=== PATIENT | female | born 1960 | race Hispanic/Latino ===

== ENCOUNTER → 2020-06-09 | Outpatient (CLI) | payer MEDICARE | LOC: RAD 13:11 | PROVIDERS: ATTEND Internal Medicine | DX: M54.17 Radiculopathy, lumbosacral region (principal) | CPT/HCPCS: 72110 ==

== ENCOUNTER → 2020-09-17 | Outpatient (CLI) | payer MEDICARE | LOC: RAD 12:10 | PROVIDERS: ATTEND Internal Medicine | DX: K57.92 Diverticulitis of intestine, part unspecified, without perforation or abscess without bleeding (principal) | CPT/HCPCS: 74018 ==

== ENCOUNTER → 2021-03-22 | Outpatient (CLI) | payer MEDICARE | LOC: DX 10:30 | PROVIDERS: ATTEND Internal Medicine | DX: M85.80 Other specified disorders of bone density and structure, unspecified site (principal) | CPT/HCPCS: 77080 ==

== ENCOUNTER → 2021-07-07 | Outpatient (CLI) | payer MEDICARE | LOC: MRI 14:25 | PROVIDERS: ATTEND Internal Medicine | DX: M47.16 Other spondylosis with myelopathy, lumbar region (principal) | CPT/HCPCS: 72148 ==

== ENCOUNTER → 2022-05-17 | Outpatient (CLI) | payer MEDICARE | LOC: RAD 13:00 | PROVIDERS: ATTEND Internal Medicine | DX: M43.02 Spondylolysis, cervical region (principal) | CPT/HCPCS: 72050 ==

== ENCOUNTER → 2022-06-17 | Outpatient (CLI) | payer MEDICARE | LOC: US 07:27 | PROVIDERS: ATTEND Internal Medicine | DX: M43.02 Spondylolysis, cervical region (principal); R22.1 Localized swelling, mass and lump, neck | CPT/HCPCS: 76536 ==

== ENCOUNTER → 2022-11-15 | Outpatient (CLI) | payer MEDICARE ==
[~2022-11-15] MED LIST: IOPAMIDOL 370 MG/ML 100 ML INFUS..BTL INJ ONE
[2022-11-15 10:53] LABS: CREATININE, SERUM 0.84 mg/dL (0.57-1.11)
== END ==
LOC: CT 09:35
PROVIDERS: ATTEND Internal Medicine
DX: K52.9 Noninfective gastroenteritis and colitis, unspecified (principal)
CPT/HCPCS: 36415; 71046; 74177; 82565; 84520; Q9967

== ENCOUNTER → 2023-06-15 | Day surgery (SDC) | payer MEDICARE ==
[~2023-06-15] MED LIST changes: +ATENOLOL50 MG PO; +FENTANYL CITRATE/PF 100MCG/2 ML INJ ONE; +GLYCOPYRROLATE INJ 0.2 MG/ML VIAL ONE; +HYDROCHLOROTHIA25 MG PO; -IOPAMIDOL 370 MG/ML 100 ML INFUS..BTL INJ ONE; +LACTATED RINGER'S 1,000 ML ONE; +LEVOTHYROXINE50 MCG PO; +LIDOCAINE HCL 2% LOCAL INJ 5 ML SDV VIAL INJ ONE; +MAGNESIUM GLUCO27 MG PO; +PRAVASTATIN SOD10 MG PO; +PROPOFOL IV EMULSION 10 MG/ML 20 ML VIAL ONE; +TERBINAFINE HC250 MG PO; +VIT B PO; +VIT D3 PO
[2023-06-15 08:30] VITALS: TEMP 97.8
[2023-06-15 09:00] VITALS: BP 151/92; PULSE 71; RESP 16; O2SAT 100
== END | disposition home or self-care (01) ==
LOC: OR 06:30
PROVIDERS: ATTEND Internal Medicine Gastroenterology
DX: K29.50 Unspecified chronic gastritis without bleeding (principal); K29.60 Other gastritis without bleeding; K44.9 Diaphragmatic hernia without obstruction or gangrene; I10 Essential (primary) hypertension; E03.9 Hypothyroidism, unspecified; F41.9 Anxiety disorder, unspecified; K21.9 Gastro-esophageal reflux disease without esophagitis; K76.0 Fatty (change of) liver, not elsewhere classified; R00.1 Bradycardia, unspecified; Z85.3 Personal history of malignant neoplasm of breast; Z90.10 Acquired absence of unspecified breast and nipple; Z01.810 Encounter for preprocedural cardiovascular examination; Z79.899 Other long term (current) drug therapy
CPT/HCPCS: 43239; 88305; 88342; 93005; J2001; J2704; J3010; J7121